=== PATIENT | female | born 1955 ===

== ENCOUNTER 2021-04-05 06:48 | Day surgery (SDC) | payer OTHER ==
[~2021-04-05 06:48] MED LIST: CARVEDILOL3.125 MG; DILTIAZEM ER240 M1 PO; ELIQUIS2.5 MG PO; SYNTH PO
== END 2021-04-05 16:20 | disposition home or self-care (01) ==
LOC: CIR.AMB 06:48
PROVIDERS: ATTEND Urology
DX: N20.0 Calculus of kidney (principal); Z20.822 Contact with and (suspected) exposure to COVID-19